=== PATIENT | male | born 1985 | race Caucasian/White ===

== ENCOUNTER 2018-06-22 21:49 | Emergency (ER) | payer MEDICAID ==
[~2018-06-22] VITALS: Ht 182.9 cm; Wt 114.3 kg
[2018-06-22 22:19] VITALS: Ht 182.9 cm; Wt 114.3 kg
[2018-06-23 00:41] VITALS: BP 134/92
== END 2018-06-23 00:41 | disposition home or self-care (01) ==
LOC: ED 21:49
DX: N50.3 Cyst of epididymis (principal); N45.1 Epididymitis
CPT/HCPCS: Q0092

== ENCOUNTER 2018-07-28 12:10 | Emergency (ER) | payer MEDICAID ==
[~2018-07-28] VITALS: Ht 182.9 cm; Wt 111.6 kg
[2018-07-28 12:53] VITALS: Ht 182.9 cm; Wt 111.6 kg
[2018-07-28 16:26] VITALS: BP 131/88
== END 2018-07-28 16:26 | disposition home or self-care (01) ==
LOC: ED 12:10
DX: M54.42 Lumbago with sciatica, left side (principal)
CPT/HCPCS: J1885

== ENCOUNTER 2018-10-15 01:26 | Emergency (ER) | payer OTHER ==
[~2018-10-15] VITALS: Ht 182.9 cm; Wt 113.4 kg
[2018-10-15 01:42] VITALS: Ht 182.9 cm; Wt 113.4 kg
[2018-10-15 03:33] VITALS: BP 128/77
== END 2018-10-15 03:33 | disposition home or self-care (01) ==
LOC: ED 01:26
DX: M54.42 Lumbago with sciatica, left side (principal)
CPT/HCPCS: J1885

== ENCOUNTER 2018-12-05 23:34 | Emergency (ER) | payer MEDICAID ==
[~2018-12-05] VITALS: Ht 182.9 cm; Wt 116.8 kg
[2018-12-05 23:42] VITALS: Ht 182.9 cm; Wt 116.8 kg
[2018-12-06 00:26] LABS: microscopic required? NO
[2018-12-06 00:32] LABS: urine erythrocyte NEGATIVE (NEGATIVE)
[2018-12-06 03:13] VITALS: BP 132/88
== END 2018-12-06 03:13 | disposition home or self-care (01) ==
LOC: ED 23:34
PROVIDERS: Emergency Medicine
DX: I86.1 Scrotal varices (principal); N43.3 Hydrocele, unspecified; M54.30 Sciatica, unspecified side
CPT/HCPCS: 82962; Q0092

== ENCOUNTER 2020-04-08 18:54 | Emergency (ER) | payer MEDICAID ==
[~2020-04-08] VITALS: Ht 182.9 cm; Wt 122.5 kg
[2020-04-08 19:13] VITALS: Ht 182.9 cm; Wt 122.5 kg
[2020-04-08 21:25] LABS: BASOPHIL % 1.1 % (0.2-1.5); PLATELET COUNT 287 x10^3mcL (152-348); RED CELL DISTRIBUTION WIDTH 12.9 % (12.1-16.2)
[2020-04-08 21:39] LABS: CALCIUM 9.2 mg/dL (8.5-10.1); CARBON DIOXIDE 26.8 mmol/L (21-32); CHLORIDE SERUM 105 mmol/L (98-107); CREATININE SERUM 0.9 mg/dL (0.7-1.3); GFR1 > 60 mL/min; GLUCOSE SERUM 117 mg/dL (74-106); POTASSIUM SERUM 3.9 mmol/L (3.5-5.1); SODIUM SERUM 141 mmol/L (136-145)
[2020-04-08 21:44] LABS: ALBUMIN 4.1 g/dL (3.4-5.0); ALKALINE PHOSPHATASE 120 U/L (46-116); ALT/SGPT 105 U/L (16-63); AST/SGOT 34 U/L (15-37); BILIRUBIN TOTAL 0.36 mg/dL (0.20-1.00)
[2020-04-08 21:52] LABS: TOTAL PROTEIN, SERUM 8.4 g/dL (6.4-8.2)
[2020-04-08 22:30] VITALS: BP 149/71
== END 2020-04-08 22:30 | disposition home or self-care (01) ==
LOC: ED 18:54
PROVIDERS: Emergency Medicine
DX: M46.1 Sacroiliitis, not elsewhere classified (principal); K64.9 Unspecified hemorrhoids

== ENCOUNTER 2020-04-16 01:51 | Emergency (ER) | payer MEDICAID ==
[~2020-04-16] VITALS: Ht 182.9 cm; Wt 111.1 kg
[2020-04-16 03:51] VITALS: BP 135/81
== END 2020-04-16 05:21 | disposition home or self-care (01) ==
LOC: ED 01:51
DX: S00.33XA Contusion of nose, initial encounter (principal); Y04.8XXA Assault by other bodily force, initial encounter; Y93.89 Activity, other specified; Y92.89 Other specified places as the place of occurrence of the external cause; Y99.8 Other external cause status